=== PATIENT | male | born 2000 | race Caucasian/White ===

== ENCOUNTER 2019-12-16 17:12 | Emergency (ER) | payer MEDICAID ==
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
== END 2019-12-16 17:43 | disposition home or self-care (01) ==
LOC: FB.ED 17:12
DX: S41.111A Laceration without foreign body of right upper arm, initial encounter (principal); E66.9 Obesity, unspecified; Z68.36 Body mass index [BMI] 36.0-36.9, adult; Z91.010 Allergy to peanuts; Z91.018 Allergy to other foods; W22.8XXA Striking against or struck by other objects, initial encounter
CPT/HCPCS: 12001; 99282; J2001

== ENCOUNTER 2020-10-03 12:55 | Emergency (ER) | payer SELFPAY ==
[2020-10-03] MEDS ORDERED: Albuterol 8 GM Inhaler INH ONE ×2 (12:56→13:20)
[2020-10-03] MEDS ORDERED: Ketorolac 60 MG/2 ML SDV IM ONE (13:19)
[2020-10-03] MEDS ORDERED: methylPREDNISolone Sodium Succinate 125 MG/2 ML SDV IM ONE (13:21)
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
--- NOTE | 2020-10-04 11:33 | CR ---
INDICATION: Cough times 4 days. History of asthma as a child. COVID positive times 1 day. CHEST, ONE VIEW: AP upright portable view of the chest was obtained 10/03/20 - no comparison. The heart, mediastinum, and bony thorax were unremarkable. Evidence of exogenous obesity is noted. A definite active infiltrate or effusion was not identified. When clinically possible, full inspiration PA and lateral views of the chest may be helpful for further evaluation. MTDD
== END 2020-10-03 15:03 | disposition home or self-care (01) ==
LOC: FB.ED 12:55
DX: U07.1 COVID-19 (principal); J45.901 Unspecified asthma with (acute) exacerbation; Z91.018 Allergy to other foods; Z91.010 Allergy to peanuts
CPT/HCPCS: 36415; 71045; 85025; 86140; 96372; 99285; A9270; J1885; J2930